=== PATIENT | female | born 1990 | race Caucasian/White ===

== ENCOUNTER → 2018-01-22 14:01 | Outpatient (CLI) | payer BC, SELFPAY ==
--- NOTE | 2018-01-22 14:10 | US_ITS ---
US transvaginal HISTORY: ITS.REASON: PELVIC PAIN ORDERING PHYSICIAN: Barbara Tejeda PATIENT AGE: 27 years Comparison: None FINDINGS: UTERUS: The uterus measures 7 x 3.5 x 4.8 cm. Combined endometrial thickness is 1 cm . No uterine mass. There is a nabothian cyst present measuring 7 mm RIGHT OVARY: 3 x 2 x 1.8 cm. There are multiple small follicles. Blood flow is present the largest follicle is 8 mm LEFT OVARY: 2.8 x 2.5 x 2.6 cm containing a few follicles. Blood flow is present CUL-DE-SAC FLUID: Small amount fluid in the cul-de-sac OTHER FINDINGS: None IMPRESSION: 1. Endometrial thickness upper limits of normal 2. Small bilateral ovarian follicles with a small amount fluid in the cul-de-sac. No other significant anomalies evident
== END ==
PROVIDERS: Family Provider Family Medicine; PCP Family Medicine; Visit Provider Nurse Practitioner Family
DX: R10.2 Pelvic and perineal pain (principal)
CPT/HCPCS: 76830

== ENCOUNTER → 2018-06-13 14:01 | Outpatient (CLI) | payer BC, SELFPAY ==
[2018-06-13 16:40] LABS: HCG,Quantitative 9484 mIU/mL
== END ==
PROVIDERS: Visit Provider Nurse Practitioner Obstetrics & Gynecology
DX: Z32.00 Encounter for pregnancy test, result unknown (principal)
CPT/HCPCS: 36415; 84702

== ENCOUNTER → 2018-07-09 14:15 | Outpatient (CLI) | payer BC, SELFPAY ==
--- NOTE | 2018-07-09 14:17 | US_ITS ---
US OB transvaginal HISTORY: ITS.REASON: US OB Dates ORDERING PHYSICIAN: Pito Bernstein MD PATIENT AGE: 27 years COMPARISON: None FINDINGS: An intrauterine gestational sac is present with a pole with a crown-rump length of 2.38cm correlating to gestational age of 9w1d. heart tones are present with an FHR of 167 bpm's. Yolk sac is noted. The amnion and chorion have not yet fused. Adnexa: 1 cm left corpus luteum cyst. IMPRESSION: Live intrauterine gestation at 9 weeks 1 days as described above. Estimated due date by Ultrasound is 02/10/2019
[2018-07-09 15:37] LABS: Basophils % 0.4 % (0.1-2.0); Eosinophils # 0.1 K/mm3 (0.0-0.4); Eosinophils % 0.6 % (0.1-12.0); Hematocrit 42.2 % (37.0-47.0); Hemoglobin 13.9 g/dL (12.2-16.2); Lymphocytes # 2.3 K/mm3 (0.7-4.5); Lymphocytes % 25.5 % (10-50); Mean Corpuscular Hemoglobin 28.8 pg (27.0-31.2); Mean Corpuscular Volume 87.2 fl (81-99); Monocytes # 0.3 K/mm3 (0.1-1.0); Monocytes % 3.6 % (1.7-9.3); Neutrophils # 6.3 K/mm3 (1.8-7.8); Platelet Count 249 K/mm3 (142-424); Red Blood Count 4.84 M/mm3 (4.20-5.40); Red Cell Distribution Width 13.6 % (11.5-17.5)
[2018-07-11 07:20] LABS: HIV Screen 4th Generation wRfx Non Reactive (Non Reactive)
[2018-07-11 09:42] LABS: Hepatitis B Surface Antigen Negative (Negative); Hepatitis C Antibody <0.1 s/co ratio (0.0-0.9); Rubella Antibodies, IgG 4.07 index (Immune >0.99)
[2018-07-12 06:54] LABS: Rapid Plasma Reagin Ab Titer Non Reactive (NonRea<1:1)
== END ==
PROVIDERS: PCP Family Medicine; Visit Provider Nurse Practitioner Obstetrics & Gynecology
DX: O26.841 Uterine size-date discrepancy, first trimester (principal)
CPT/HCPCS: 36415; 76817; 85025; 86592; 86703; 86762; 86850; 87340; 87380; G0432

== ENCOUNTER → 2018-07-09 15:10 | Outpatient (CLI) | payer BC, SELFPAY | PROVIDERS: Visit Provider Nurse Practitioner Obstetrics & Gynecology | DX: O26.841 Uterine size-date discrepancy, first trimester (principal) | CPT/HCPCS: 36415; 85025; 86592; 86703; 86762; 86850; 87340; 87380; G0432 ==

== ENCOUNTER → 2018-08-22 09:24 | Outpatient (CLI) | payer BC, SELFPAY ==
[2018-08-25 01:08] LABS: AFP Value 42.2 ng/mL (.); DIA MoM 1.26 (.); DSR (Second Trimester) 1 IN 7141 (.); Gest. Age on Collection Date 15.4 WEEKS (.); Maternal Age At EDD 30.5 yr (.); OSBR Risk 1 IN 3920 (.); Results Report (.); hCG MoM 0.48 (.); hCG Value 23883 mIU/mL (.); uE3 Value 0.54 ng/mL (.)
[2018-08-25 19:01] LABS: Gestat. Age Based On EDD (.)
== END ==
PROVIDERS: Visit Provider Nurse Practitioner Obstetrics & Gynecology
DX: Z3A.15 15 weeks gestation of pregnancy (principal)
CPT/HCPCS: 36415; 82106

== ENCOUNTER → 2018-09-30 14:00 | Outpatient (CLI) | payer BC, SELFPAY ==
--- NOTE | 2018-09-30 14:03 | US_ITS ---
US OB /maternal detail: INDICATION: ITS.REASON: US OB Complete ORDERING PHYSICIAN: Pito Bernstein MD PATIENT AGE: 28 years TECHNIQUE: ultrasound transabdominal scanning. COMPARISON: No previous relevant studies. FINDINGS: Single viable intrauterine gestation. Ceph position. Placenta: Post placenta grade 1. There is average amount fluid. The cervix appears satisfactory. Closed and measuring 3 cm in length. Complete survey performed and was unremarkable on the submitted images as in PACS. No discrete anomalies identified on survey imaging by technologist. Active fetus. Three-vessel cord with satisfactory umbilical cord insertion. 4- chamber heart noted. Survey of brain & ventricles unremarkable. Face and neck survey unremarkable. Diaphragm and chest views unremarkable. Abdomen: Both kidneys noted and unremarkable. Stomach noted and satisfactory. Spine: Survey of the spine satisfactory with no anomalies identified nor imaged. Both arms and legs noted. Amniotic Fluid: Adequate. Maternal adnexa: No significant findings. Measurements: Average ultrasound age 20w6d. Gestational Age 21w0d. Estimated due date by ultrasound age 0702/11/2019. Estimated weight 378 grams. BPD = 20w6d OFD = 22w0d HC = 20w6d AC = 21w2d FL = 20w3d Growth Percentile= 34% Heart Rate = 134 Cerebellum = 22w1d Humerus = 21w1d HC/AC is 1.14 (1.06-1.25). CI is 73% (70-86%). FL/BPD is 68%. FL/AC is 20% (20-24%). IMPRESSION: There is a single live fetus which is in cephalic presentation with an average ultrasound age of 20 weeks and 6 days. The fetus is active with no obvious anatomic abnormalities. Please see above for details
== END ==
PROVIDERS: PCP Family Medicine; Visit Provider Nurse Practitioner Obstetrics & Gynecology
DX: Z36.0 Encounter for antenatal screening for chromosomal anomalies (principal)
CPT/HCPCS: 76811

== ENCOUNTER → 2018-11-13 07:21 | Outpatient (CLI) | payer BC, SELFPAY ==
[2018-11-13 09:58] LABS: Glucose,Fasting 79 mg/dL (60-105)
[2018-11-13 11:22] LABS: Glucose 1 Hour 88 mg/dL (74-106)
== END ==
PROVIDERS: Visit Provider Nurse Practitioner Obstetrics & Gynecology
DX: Z34.90 Encounter for supervision of normal pregnancy, unspecified, unspecified trimester (principal)
CPT/HCPCS: 36415; 82951

== ENCOUNTER → 2019-01-09 16:42 | Outpatient (CLI) | payer BC, SELFPAY | PROVIDERS: Visit Provider Nurse Practitioner Obstetrics & Gynecology | DX: Z34.90 Encounter for supervision of normal pregnancy, unspecified, unspecified trimester (principal) | CPT/HCPCS: 86403 ==

== ENCOUNTER → 2019-01-17 10:31 | Outpatient (CLI) | payer BC, SELFPAY ==
--- NOTE | 2019-01-17 10:44 | US_ITS ---
US OB BPP w/Fet-Mat S/D: Indication: ITS.REASON: US OB BPP Growth- SGA ORDERING PHYSICIAN: Pito Bernstein MD PATIENT AGE: 28 years FINDINGS: The following parameters are obtained: Average ultrasound age is 35w6d. Estimated due date by ultrasound is 02/15/2019. Estimated weight is 2734 grams which is 30th percentile BPD: 36w3d OFD: 36w0d HC: 35w5d AC: 35w5d FL: 35w3d heart rate: 144 bpm. HC/AC: 1.00 (0.93-1.11) Cephalic index: 81% (70-86%) FL/BPD: 77% (71-87%) FL/AC: 22% (20-24%) Amniotic fluid index: 12 cm Qualitative AFV: 2 breathing movements: 2 Gross body movements: 2 Tone: 2 Biophysical profile score: 8/8 Doppler evaluation of the umbilical artery: SD ratio: 3.6 Resistive index: 0.72 No obvious anomalies evident. Placenta: Posterior High, Grade 2 Cervix: Appears closed and measures 3 cm IMPRESSION: There is a single live fetus present which is in cephalic presentation. Average ultrasound age 35 weeks and 6 days. All parameters correlate. Estimated weight is 2734 g which is 30th percentile. Biophysical profile dated 8 with an amniotic fluid index of 12 cm Umbilical artery evaluation shows SD ratio and resistive index at upper limits of normal near the 95th percentile
== END ==
PROVIDERS: PCP Family Medicine; Visit Provider Nurse Practitioner Obstetrics & Gynecology
DX: O36.5990 Maternal care for other known or suspected poor fetal growth, unspecified trimester, not applicable or unspecified (principal)
CPT/HCPCS: 76811; 76819; 76820

== ENCOUNTER 2019-02-04 01:15 | Inpatient (IN) ==
[2019-02-04 05:47] LABS: Basophils % 0.3 % (0.1-2.0); Eosinophils # 0.1 K/mm3 (0.0-0.4); Eosinophils % 0.5 % (0.1-12.0); Hematocrit 36.2 % (37.0-47.0); Hemoglobin 11.7 g/dL (12.2-16.2); Lymphocytes # 2.7 K/mm3 (0.7-4.5); Lymphocytes % 22.7 % (10-50); Mean Corpuscular HGB Conc 32.4 g/dL (31.8-35.4); Mean Corpuscular Volume 88.3 fl (81-99); Mean Platelet Volume 8.5 fl (7.4-10.4); Monocytes # 0.4 K/mm3 (0.1-1.0); Monocytes % 3.2 % (1.7-9.3); Neutrophils # 8.7 K/mm3 (1.8-7.8); Neutrophils % 73.3 % (37.0-80.0); Platelet Count 264 K/mm3 (142-424); Red Cell Distribution Width 13.8 % (11.5-17.5); White Blood Count 11.8 K/mm3 (4.8-10.8)
[2019-02-04 05:48] LABS: Microscopic, Urine URINE MICROSCOPIC (MICROSCOPIC)
[2019-02-04 05:50] LABS: Appearance,Urine CLEAR (Clear); Bilirubin,Urine Negative (Negative); Blood, Urine Negative (Negative); Color,Urine YELLOW (Yellow); Glucose,Urine (UA) Negative (Negative); Ketones,Urine Negative (Negative); Leukocyte Esterase,Urine Negative (Negative); PH,Urine 6.5 (5.0-8.5); Protein,Urine Negative (Negative); Specific Gravity, Urine <= 1.005 (1.005-1.030); Urobilinogen,Urine 0.2 EU/dl (0.2)
[2019-02-04 05:54] LABS: Renal Epithelial Cells,Urine Occasional #/lpf (0); WBC,Urine Occasional #/hpf (0-3)
[2019-02-04 05:56] LABS: Amphetamine/Metha Screen,Urine Negative ng/mL (<1000); Barbiturates Screen,Urine Negative ng/mL (<200); Benzodiazepines Screen,Urine Negative ng/mL (<200); Cannabinoid Screen,Urine Negative ng/mL (<50); Cocaine Screen,Urine Negative ng/mL (<300); Methadone Screen,Urine Negative ng/mL (<300); Opiate Screen,Urine Negative ng/mL (<300); Phencyclidine Screen,Urine Negative ng/mL (<25)
--- NOTE | 2019-02-04 09:13 | Progress Note ---
Labor Note - Subjective: Date: 02/04/19 Time: 07:45 regular contraction - Objective: NST:: Reactive Contractions:: every 2-3 minutes Cervical Dilation:: 4 Effacement:: 90% Station: -1 Membranes: artificially ruptured Comment:: I ruptured her membranes and there was clear fluid. - Fetus: Monitoring?: Yes monitoring type:: External - Assessment: Labor progressing?: Yes Cephalopelvic disproportion?: No Patient Problems: All Active Problems (Updated 01/30/19 @ 09:14 by Ashanti Ponce, [facility]) Strep throat (Acute) Brkxp-gyw-adrvc fetus (Acute) (Acute) Annual physical exam (Acute) - Plan: Anesthesia for epidural?: No Continue to labor down?: Yes Plan for ?: No Continue to monitor?: Yes Start pushing?: No
--- NOTE | 2019-02-04 09:14 | History & Physical Report ---
OB - H&P: HPI Antepartum - History of Present Illness Chief complaint: She has pressure and irregular contractions History of present illness: She is a 28-year-old 3 para 1 aborta 1 at 39 and 1 weeks gestational age. She was found to be 4+ centimeters in my office. She was having irregular contractions. As result of that we elected to augment her labor. - History of Present Criteria for establishing EDC:: LMP confirmed by 1st trimester US care: good care Ultrasounds: normal 1st trimester US, normal mid trimester US Obstetrical complications: none Medical complications: none - Labs Blood type: B (+) positive Rubella: immune RPR/VDRL: nonreactive GBS status: negative [facility] History I have reviewed the patient's past medical history: Yes Medical History: Denies:: Anxiety, Depression, Diabetes Mellitus Type 2, Migraine, MRSA *Have you ever received a pneumonia vaccine?: No *Have you received a flu vaccine this season?: Yes Other Surgeries: Yes: No Previous Surgery. No: Amputation: No Fractures: No - *Social History Smoking Status: Former smoker Tobacco Type: cigarettes Alcohol Intake: never Substance Use Type: denies use *Occupational Status:: unemployed *Travel in the last 8 weeks: None - Psychiatric History Pschychiatric History:: Denies:: Anxiety, Depression Family Hx:: No significant family history Para: 1 Review of Systems - Review of Systems Review of systems:: pertinent systems reviewed and negative unless documented below Meds Home Medications Medication Instructions Recorded Confirmed Type 1 tab PO DAILY 07/01/18 02/04/19 History vitamin,calcium,bgoejcjw-twhv-gexnv acid tablet ranitidine 150 mg tablet 150 mg PO DAILY 01/15/19 02/04/19 History ferrous sulfate 325 mg (65 mg 325 mg PO DAILY 02/04/19 02/04/19 History iron) tablet,delayed release Allergies Allergy/AdvReac Type Severity Reaction Status Date / Time No Known Allergies Allergy Verified 01/30/19 09:10 OB - H&P: Exam - Physical Exam Vital signs: Temp Pulse Resp BP Pulse Ox 97.9 F 88 12 116/70 98 02/04/19 05:34 02/04/19 05:34 02/04/19 05:34 02/04/19 05:34 02/04/19 05:34 - Constitutional no acute distress - Routine HEENT Exam Head: Present: normocephalic Eye: Present: EOMI, PERRL ENT: Present: mucous membranes moist - Routine Neck Exam Present: supple, full ROM - Routine Respiratory Exam Absent: accessory muscle use (good air entry bilaterally), respiratory distress, wheezes, crackles - Routine Cardiovascular Exam Present: RRR. Absent: murmur - Routine Abdominal Exam Present: soft, normoactive bowel sounds. Absent: tenderness, distended, guarding - Routine Rectal Exam Patient deferred: visual exam, digital exam - Routine Exam Patient deferred: external exam, groin exam, perineal exam - Routine Extremities Exam Present: full ROM. Absent: cyanosis, edema - Routine Skin Exam Present: intact. Absent: cyanosis - Routine Neurological Exam Present: alert, oriented X3 - Routine Psychiatric Exam Present: normal affect OB - Results - Labs Labs: Short CBC 02/04/19 Range/Units 05:40 WBC 11.8 H (4.8-10.8) K/mm3 Hgb 11.7 L (12.2-16.2) g/dL Hct 36.2 L (37.0-47.0) % Plt Count 264 (142-424) K/mm3 Urine 02/04/19 Range/Units 05:10 Urine Color Yellow (Yellow) Urine Appearance Clear (Clear) Urine pH 6.5 (5.0-8.5) Ur Specific [place] <= 1.005 (1.005-1.030) Urine Protein Negative (Negative) Urine Glucose (UA) Negative (Negative) OB - A/P Antepartum (1) Normal delivery Current visit: Yes Status: Acute - Additional Plan Planning to breastfeed?: Yes Plan: expectant management Additional Information:: She is having irregular contractions prior to admission and was found to be 4 cm dilated. She has been admitted for augmentation of labor at term.
--- NOTE | 2019-02-04 10:05 | Progress Note ---
Labor Note - Subjective: Date: 02/04/19 Time: 10:04 regular contraction - Objective: NST:: Reactive Contractions:: every 2-3 minutes Cervical Dilation:: 7-8 Effacement:: 100% Station: 0 Membranes: artificially ruptured - Fetus: Monitoring?: Yes monitoring type:: External - Assessment: Labor progressing?: Yes Cephalopelvic disproportion?: No Patient Problems: All Active Problems (Updated 02/04/19 @ 09:14 by Pito Bernstein MD) Strep throat (Acute) Normal delivery (Acute) Ydnjg-hmo-sdifd fetus (Acute) (Acute) Annual physical exam (Acute) - Plan: Anesthesia for epidural?: Yes Continue to labor down?: Yes Plan for ?: No Continue to monitor?: Yes Start pushing?: No
--- NOTE | 2019-02-04 10:51 | Procedure Note ---
- Delivery Note Delivery Date:: 02/04/19 Delivery Time:: 10:32 Anesthesia Type: Epidural Was labor medically induced?: No Gestational age (weeks): 39 delivered prior to 39 weeks?: No Justification for early elective delivery:: Active Labor Gender: Male at 1 minute: 9 at 5 minutes: 9 LAC or MLE?: LAC Delivery Procedure:: She is a 28-year-old 3 para 1 aborta 1 who was 39+ weeks gestational age. She was having irregular contractions and was found to be 4 cm dilated in my office. As result of that she was offered augmentation. She was started on IV oxytocin and had her membranes ruptured. She progressed under labor epidural to full dilation. She delivered spontaneously a liveborn male child at 10:32 AM on the morning of February 04, 2019. On deliver the head the anterior shoulders then delivered followed by the rest the infant's body atraumatically. The oropharynx and nasopharynx were bulb suction. The baby cried spontaneously. We allowed the cord to continue to pulsate for proximally 1 minute. The cord was then doubly clamped and cut. The baby was then placed on the mother's abdomen for further care. The nurses assigned Apgars of 9 at 1 minute and 9 at 5 minutes. We then obtained cord blood as well as cord pH. Using gentle traction on the cord and countertraction the fundus I was able to easily deliver the placenta intact. He had a normal three-vessel cord. She had a second-degree perineal laceration that was repaired in the usual fashion with 3-0 Vicryl Rapide suture to the superficial tissues and 2-0 Vicryl suture to the deep tissues. The sphincter and anus were intact. She has B+ blood, she is rubella immune and was group A streptococcus negative. She plans to breast-feed. Her business info consultant is Dr. Yancey. Estimated blood loss was approximately 400 cc. Laceration:: vaginal Placental Delivery Description: Spontaneous
--- NOTE | 2019-02-04 12:15 | Progress Note ---
[facility] Anesthesia Checklist - Structural Data Admitted From: Inpatient Planned Operative Procedure/s: labor epidural Consent for Planned Operative Procedure(s) Verified: Yes - Airway Assessment C-Spine Mobility Assessed: Yes TMJ Mobility Assessed: Yes Dentition: Good Dentition - Neurological Assessment Level of Consciousness: Awake, Alert, Appropriate - Anesthesia Plan Anesthesia Risk discussed: Yes Anesthesia Plan: Verified ASA Class: II Anesthesia Type: Epidural [facility] History I have reviewed the patient's past medical history: Yes Medical History: Denies:: Anxiety, Depression, Diabetes Mellitus Type 2, Migraine, MRSA *Have you ever received a pneumonia vaccine?: No *Have you received a flu vaccine this season?: Yes Other Surgeries: Yes: No Previous Surgery. No: Amputation: No Fractures: No - *Social History Smoking Status: Former smoker Tobacco Type: cigarettes Alcohol Intake: never Substance Use Type: denies use *Occupational Status:: unemployed *Travel in the last 8 weeks: None - Psychiatric History Pschychiatric History:: Denies:: Anxiety, Depression Family Hx:: No significant family history Para: 1
[2019-02-05 08:19] LABS: Hemoglobin 10.4 g/dL (12.2-16.2)
--- NOTE | 2019-02-05 17:56 | Discharge Summary ---
General - General Admission date:: 02/04/19 Discharge date: 02/06/19 HPI HPI: She is a 28-year-old 3 now para 2 aborta 1 who was 39 and 1 weeks gestational age. She she was feeling pressure and having irregular contractions and since she was term we elected to augment her labor. Hospital Course Hospital Course: She was started on IV oxytocin had her membranes ruptured. Under labor epidural she progressed to full dilation and delivered spontaneously a liveborn male child at 10:32 AM on the morning of February 04, 2019. The baby weighed 6 pounds 4 ounces and was 18 and three-quarter inches long. He had Apgars of 9 at 1 minute and 9 at 5 minutes. She is breast-feeding. She has B+ blood, she is rubella immune and was group B streptococcus negative. She is breast-feeding. Her lacing operator is Dr. Yancey. She is discharged home to follow-up with me in approximately 2 weeks time. Rhogam Administration: Not Indicated Objective Vital signs: Temp Pulse Resp BP Pulse Ox 97.9 F 88 12 116/70 98 02/04/19 05:34 02/04/19 05:34 02/04/19 05:34 02/04/19 05:34 02/04/19 05:34 no acute distress Results Labs on day of discharge: Labs from last 24 hours 02/05/19 07:12 Hgb 10.4 L Hct 32.0 L DS: Diagnosis - Discharge Diagnosis (1) Normal delivery Status: Acute Discharge Plan - Patient Discharge Instructions ACTIVITY: Ambulate as tolerated DIET: continue same diet - Follow up Plan Disposition: Home, Self-Retirement Medications: Home Medications Medication Instructions Recorded Confirmed Type 1 tab PO DAILY 07/01/18 02/04/19 History vitamin,calcium,cqlnoxpr-liny-fxord acid tablet ranitidine 150 mg tablet 150 mg PO DAILY 01/15/19 02/04/19 History ferrous sulfate 325 mg (65 mg 325 mg PO DAILY 02/04/19 02/04/19 History iron) tablet,delayed release Prescriptions/Medication Reconciliation: Continued vitamin,calcium,djbobrqx-crrj-fnibq acid tablet 1 tab PO DAILY ranitidine 150 mg tablet 150 mg PO DAILY No Action ferrous sulfate 325 mg (65 mg iron) tablet,delayed release 325 mg PO DAILY
--- NOTE | 2019-02-06 08:56 | Progress Note ---
Internal Medicine - PN: Subj *Date: 02/06/19 *Time: 08:55 (This is day #2. The patient is afebrile. Vital signs stable. Abdomen soft. Lochia normal. Uterine fundus involuting well. Hemoglobin 10.7 g, but clinically stable. She is eating and ambulating and has had a bowel movement. Breast-feeding. She will be discharged today.) Exam Vital signs and Labs for Last 24 Hours: Temp Pulse Resp BP Pulse Ox 97.9 F 88 12 116/70 98 02/04/19 05:34 02/04/19 05:34 02/04/19 05:34 02/04/19 05:34 02/04/19 05:34 I & O for Last 24 hours: Intake & Output 02/03/19 02/04/19 02/05/19 02/06/19 11:59 11:59 11:59 11:59 Weight 158 lb Assessment and Plan (1) Normal delivery Current visit: Yes Status: Acute Category: Medical Code(s): O80 - Encounter for full-term uncomplicated delivery
[2019-02-06 10:21] VITALS: BP 115/72
== END 2019-02-06 10:00 | disposition home or self-care (01) | DRG 807 ==
LOC: OB 05:09
PROVIDERS: ADMIT Nurse Practitioner Obstetrics & Gynecology; ATTEND Nurse Practitioner Obstetrics & Gynecology

== ENCOUNTER 2019-12-18 19:31 | Emergency (ER) | payer BC, SELFPAY ==
[2019-12-18 19:48] VITALS: BP 123/76; PULSE 100; RESP 20; TEMP 36.8; O2SAT 99; BMI 24.0
[2019-12-18 19:49] LABS: Apearance,Urine Cloudy (Clear); Color,Urine Dark Yellow (Yellow); Glucose,Urine (UA) Negative (Negative); Ketones,Urine Negative (Negative); PH,Urine 6.5 (5.0-8.5); Protein,Urine 1+ (Negative)
[2019-12-18 19:50] LABS: Bilirubin,Urine Negative (Negative); Blood, Urine Trace (Negative); UTC Leukocyte Esterase,Urine 1+ (Negative); UTC Nitrate,Urine Negative (Negative); Urobilinogen,Urine 0.2 EU/dl (0.2)
--- NOTE | 2019-12-18 19:50 | HMH.EDUTC ---
[facility] [place] Clinical Impression: UTI (urinary tract infection) Qualifiers: Urinary tract infection type: site unspecified Hematuria presence: with hematuria Qualified Code(s): N39.0 - Urinary tract infection, site not specified Disposition: Home, Self-Care Condition on Discharge: Good Instructions: Urinary Tract Infection Additional Instructions: Drink plenty of fluids. Take tylenol or ibuprofen for pain or fever. Take the medications as directed. Follow up with your regular doctor. GO TO THE ER FOR ANY WORSENING SYMPTOMS The pyridium will make your urine turn orange, this is an expected side effect. It will stain your clothes if it comes into contact with them. Prescriptions: Fluconazole [Diflucan 150mg tab] 150 mg PO ONCE #1 tab Transmission Status: Pending to [facility] # Cefdinir [Omnicef 300mg Capsule] 300 mg PO BID #20 cap Transmission Status: Pending to [facility] # Phenazopyridine HCl [Pyridium 200mg Tablet] 200 pow PO TID #6 tab Transmission Status: Pending to [facility] # Referrals: Donnie Yancey MD [Primary Care Provider] - Time of Disposition: 19:57 Medical Decision Making - Medical Records Medical records reviewed: No: I reviewed the patient's medical records. - Ibrahima Inquiry Pt receiving controlled substance: No Vital Signs: 12/18/19 19:48 Temperature 98.2 F Temperature Source Oral Pulse Rate [Right Radial] 100 H Respiratory Rate 20 Blood Pressure [Right Arm] 123/76 Blood Pressure Mean [Right Arm] 91 Blood Pressure Source [Right Arm] Automatic Cuff Blood Pressure Position [Right Arm] Sitting 02 Sat by Pulse Oximetry 99 Oxygen Delivery Method Room Air - Lab Data Lab results reviewed: Yes: I reviewed the patient's lab results. Lab Results 12/18/19 19:46: Urine Color Dark yellow, Urine Appearance Cloudy, Urine pH 6.5, Ur Specific [place] 1.030, Urine Protein 1+, Urine Glucose (UA) Negative, Urine Ketones Negative, Urine Blood Trace, Urine Nitrate Negative, Urine Bilirubin Negative, Urine Urobilinogen 0.2, Ur Leukocyte Esterase 1+ A Orders (Tests/Meds): ORDERS Category Date Time Status Urine Culture Stat Micro 12/18/19 19:46 [place] [facility] [place] - General Stated complaint: Possible UTI Time Seen by Provider: 12/18/19 19:51 - History of Present Illness Provider Complaint: She c/o low back pain and burning while urinating. Her symptoms began yesterday. - Related Data Previous Rx's Medication Instructions Recorded Cefdinir [Omnicef 300mg Capsule] 300 mg PO BID #20 cap 12/18/19 Fluconazole [Diflucan 150mg tab] 150 mg PO ONCE #1 tab 12/18/19 Phenazopyridine HCl [Pyridium 200 pow PO TID #6 tab 12/18/19 200mg Tablet] Allergies Allergy/AdvReac Type Severity Reaction Status Date / Time No Known Allergies Allergy Verified 10/09/19 10:14 [facility] History - Hepatitis A Screen Attestation statement:: This patient has been screened for Hepatitis A risk factors. I have reviewed the patient's past medical history: Yes Medical History: Denies:: Anxiety, Depression, Diabetes Mellitus Type 2, Migraine, MRSA Laterality Cases: Left: ACL Repair Other Surgeries: Yes: No Previous Surgery. No: Amputation: No Fractures: Yes (COLLARBONE) Comment: left knee, X 2 - Social History Smoking Status: Current every day smoker Tobacco Type: cigarettes # Packs/Day (cigarettes): 1 Alcohol Intake: current Alcohol Intake Frequency:: holidays/special occasions only Substance Use Type: denies use Occupational Status: other Housing: house Household Members: family - Psychiatric History Pschychiatric History:: Denies:: Anxiety, Depression Family Hx:: Cancer, Diabetes ROS Obtained: Yes All systems reviewed & no additional complaints - Constitutional Constitutional: Denies chills, Denies fever(s), Reports poor appetite, Reports malaise - Eyes Eyes: Denies eye dischar
[2019-12-18 20:12] VITALS: BP 123/76; PULSE 100; RESP 20; TEMP 36.8; O2SAT 99
== END 2019-12-18 20:13 | disposition home or self-care (01) ==
PROVIDERS: Emergency Provider Nurse Practitioner Family; PCP Family Medicine
DX: N30.00 Acute cystitis without hematuria (principal); F17.210 Nicotine dependence, cigarettes, uncomplicated
CPT/HCPCS: 81003; 87086; 87088; 87186; 99201

== ENCOUNTER 2020-10-16 09:04 | Emergency (ER) | payer BC, SELFPAY ==
[2020-10-16 09:28] LABS: Apearance,Urine Clear (Clear); Color,Urine Red (Yellow); Glucose,Urine (UA) Negative (Negative); Ketones,Urine Negative (Negative); Protein,Urine 3+ (Negative)
[2020-10-16 09:29] LABS: Bilirubin,Urine Negative (Negative); Blood, Urine 4+ (Negative); UTC Leukocyte Esterase,Urine 1+ (Negative); UTC Nitrate,Urine Negative (Negative); Urobilinogen,Urine 0.2 EU/dl (0.2)
[2020-10-16 09:36] VITALS: BP 145/88; PULSE 69; RESP 16; TEMP 36.4; O2SAT 100; BMI 24.0
--- NOTE | 2020-10-16 09:48 | HMH.EDUTC ---
[facility] [place] Clinical Impression: UTI (urinary tract infection) Qualifiers: Urinary tract infection type: acute cystitis Hematuria presence: with hematuria Qualified Code(s): N30.01 - Acute cystitis with hematuria Disposition: Home, Self-Care Condition on Discharge: Good Instructions: Urinary Tract Infection Additional Instructions: Increase fluids, water and not soda or tea. Can drink cranberry juice or cranberry extract. White front to back Wear cotton underwear Empty bladder after intercourse Start antibiotics immediately and make sure you take the full course although you may start to see improvement over the next 48 hours. You can eat yogurt or take probiotics to decrease diarrhea or yeast infection caused by the antibiotic Be sure to follow-up anytime for new or worsening symptoms in 48 hours for wound urine culture results be sure to let you PCP no recent urine for culture so they can request records and ensure that you have appropriate antibiotic if you are not getting better or getting worse. If symptoms worsen or do not improve return or be seen in the ER. Follow-up with primary care this week. Prescriptions: cephALEXin [Cephalexin 500mg Tab] 500 mg PO BID 7 Days #14 tab Transmission Status: Pending to [facility] #[id number] Referrals: Donnie Yancey MD [Primary Care Provider] - Time of Disposition: 09:57 Medical Decision Making - Ibrahima Inquiry Pt receiving controlled substance: No Vital Signs: 10/16/20 09:36 Temperature 97.6 F Temperature Source Tympanic Pulse Rate [Right] 69 Respiratory Rate 16 Blood Pressure [Right Arm] 145/88 H Blood Pressure Mean [Right Arm] 107 Blood Pressure Source [Right Arm] Automatic Cuff Blood Pressure Position [Right Arm] Sitting 02 Sat by Pulse Oximetry 100 Oxygen Delivery Method Room Air - Lab Data Lab Results 10/16/20 09:20: Urine Color Red, Urine Appearance Clear, Urine pH 7.0, Ur Specific [place] 1.010, Urine Protein 3+, Urine Glucose (UA) Negative, Urine Ketones Negative, Urine Blood 4+, Urine Nitrate Negative, Urine Bilirubin Negative, Urine Urobilinogen 0.2, Ur Leukocyte Esterase 1+ A [facility] [place] HPI - General Chief complaint: Urgent Treatment Center Stated complaint: UTI Time Seen by Provider: 10/16/20 09:48 Mode of Arrival: Ambulatory Source of Information: Patient Limitations: No Limitations Description of Symptoms (Recalled from Triage Doc. by RN): pt is having burning with urination. she thinks she has a uti. (pt is on her period...visible blood in urine.) HEENT Symptoms (Recalled from RN notes): No Resp Symptoms (Recalled from RN notes): No Skin Symptoms (Recalled from RN notes): No MS Symptoms (Recalled from RN notes): No Functional Status (Recalled from RN notes): na - History of Present Illness Provider Complaint: 30 yr old female presents for burning,freq,urgency with voiding that started last night. - Related Data Previous Rx's Medication Instructions Recorded Cefdinir [Omnicef 300mg Capsule] 300 mg PO BID #20 cap 12/18/19 Fluconazole [Diflucan 150mg tab] 150 mg PO ONCE #1 tab 12/18/19 Phenazopyridine HCl [Pyridium 200 pow PO TID #6 tab 12/18/19 200mg Tablet] cephALEXin [Cephalexin 500mg Tab] 500 mg PO BID 7 Days #14 tab 10/16/20 Allergies Allergy/AdvReac Type Severity Reaction Status Date / Time No Known Allergies Allergy Verified 10/16/20 09:42 - Worker's Comp Is this a Worker's Comp case?: No [facility] History - Hepatitis A Screen Drug use history?: No High risk sexual behaviors?: No History of sexually transmitted infection?: No Currently employed?: No Childcare worker?: No Do you have indoor plumbing?: Yes Do you have electricity?: Yes Attestation statement:: This patient has been screened for Hepatitis A risk factors. I have reviewed the patient's past medical history: Yes Medical History: Denies:: Anxiety, Depression, Diabetes Mellitus Type 1, Diabetes Mellitus Type 2, Migraine, MR
[2020-10-16 09:51] VITALS: BP 141/88; PULSE 63; RESP 15; TEMP 36.1
== END 2020-10-16 10:08 | disposition home or self-care (01) ==
PROVIDERS: Emergency Provider Nurse Practitioner Family; PCP Family Medicine
DX: N30.01 Acute cystitis with hematuria (principal); F17.210 Nicotine dependence, cigarettes, uncomplicated
CPT/HCPCS: 81003; 87086; 87088; 87186; 99202; G0463

== ENCOUNTER 2021-08-02 20:20 | Emergency (ER) | payer BC, SELFPAY ==
[2021-08-02 21:13] VITALS: BP 144/89; PULSE 78; RESP 16; TEMP 36.5; O2SAT 100; BMI 23.6
[2021-08-02 21:22] LABS: Apearance,Urine Clear (Clear); Bilirubin,Urine Negative (Negative); Blood, Urine Negative (Negative); Color,Urine Yellow (Yellow); Glucose,Urine (UA) Negative (Negative); Ketones,Urine Negative (Negative); Protein,Urine Negative (Negative); Urobilinogen,Urine 0.2 EU/dl (0.2)
[2021-08-02 21:23] LABS: UTC Leukocyte Esterase,Urine 1+ (Negative); UTC Nitrate,Urine Negative (Negative)
--- NOTE | 2021-08-02 21:45 | HMH.EDUTC ---
[facility] [place] Clinical Impression: UTI (urinary tract infection) Qualifiers: Urinary tract infection type: site unspecified Hematuria presence: with hematuria Qualified Code(s): N39.0 - Urinary tract infection, site not specified Disposition: Home, Self-Care Condition on Discharge: Good Instructions: Urine Culture, DI for Urinary Tract Infection (UTI) Additional Instructions: Drink plenty of fluids. Take tylenol or ibuprofen for pain or fever. Take the medications as directed. Follow up with your regular doctor. GO TO THE ER FOR ANY WORSENING SYMPTOMS I put a refill on the antibiotics. I think that pharmacies keep these on file for 6 months. So, if your symptoms get better but return on down the road you could get this and take it. But it is always best to have your urine tested before you start an antibiotic for a uti. Prescriptions: Ondansetron [Zofran 4mg ODT] 4 mg PO Q8HP PRN #20 tab PRN Reason: Nausea Transmission Status: Received by [facility] Fluconazole [Diflucan 150mg tab] 150 mg PO ONCE #1 tab Transmission Status: Received by [facility] Nitrofurantoin Monohyd/M-Cryst [Macrobid 100 mg Capsule] 100 mg PO BID 5 Days #10 cap Transmission Status: Received by [facility] Referrals: Donnie Yancey MD [Primary Care Provider] - Forms: Work/School Release Time of Disposition: 22:29 Medical Decision Making - Medical Records Medical records reviewed: No: I reviewed the patient's medical records. - Ibrahima Inquiry Pt receiving controlled substance: No Vital Signs: 08/02/21 21:13 08/02/21 21:47 Temperature 97.7 F 97.7 F Temperature Source Temporal Artery Scan Pulse Rate 78 Pulse Rate [Left] 78 Respiratory Rate 16 16 Blood Pressure 144/89 H Blood Pressure [Right Arm] 144/89 H Blood Pressure Mean [Right Arm] 107 02 Sat by Pulse Oximetry 100 - Lab Data Lab results reviewed: Yes: I reviewed the patient's lab results. Lab Results 08/02/21 21:21: Urine Color Yellow, Urine Appearance Clear, Urine pH 7.0, Ur Specific [place] 1.020, Urine Protein Negative, Urine Glucose (UA) Negative, Urine Ketones Negative, Urine Blood Negative, Urine Nitrate Negative, Urine Bilirubin Negative, Urine Urobilinogen 0.2, Ur Leukocyte Esterase 1+ A Orders (Tests/Meds): ED MEDICATIONS Discontinued Medications Generic Name Dose Route Start Last Admin Trade Name Delma PRN Reason Stop Dose Admin Nitrofurantoin Macrocrystals 100 mg 08/02/21 22:30 08/02/21 22:35 Nitrofurantoin 100mg Capsule PO 08/02/21 22:31 100 mg ONCE ONE Administration ORDERS Category Date Time Status Urine Culture Stat Micro 08/02/21 21:13 Received [facility] [place] H[place] - General Stated complaint: possible uti Time Seen by Provider: 08/02/21 21:45 Mode of Arrival: Ambulatory Source of Information: Patient Limitations: No Limitations Description of Symptoms (Recalled from Triage Doc. by RN): pt c/o burning with urination x2days. HEENT Symptoms (Recalled from RN notes): No Resp Symptoms (Recalled from RN notes): No Skin Symptoms (Recalled from RN notes): No MS Symptoms (Recalled from RN notes): No Functional Status (Recalled from RN notes): wnl - History of Present Illness Provider Complaint: She c/o low back pain and burning with urination since yesterday. She gets uti's kind of frequently. - Related Data Previous Rx's Medication Instructions Recorded Fluconazole [Diflucan 150mg tab] 150 mg PO ONCE #1 tab 12/18/19 Phenazopyridine HCl [Pyridium 200 pow PO TID #6 tab 12/18/19 200mg Tablet] Fluconazole [Diflucan 150mg tab] 150 mg PO ONCE #1 tab 08/02/21 Nitrofurantoin Monohyd/M-Cryst 100 mg PO BID 5 Days #10 cap 08/02/21 [Macrobid 100 mg Capsule] Ondansetron [Zofran 4mg ODT] 4 mg PO Q8HP PRN #20 tab 08/02/21 Allergies Allergy/AdvReac Type Severity Reaction Status Date / Time No Known Allergies Allergy Verified 10/16/20 09:42 - W
[2021-08-02 21:47] VITALS: BP 144/89; PULSE 78; RESP 16; TEMP 36.5
== END 2021-08-02 22:38 | disposition home or self-care (01) ==
PROVIDERS: Emergency Provider Nurse Practitioner Family; PCP Family Medicine
DX: N30.00 Acute cystitis without hematuria (principal); F17.210 Nicotine dependence, cigarettes, uncomplicated
CPT/HCPCS: 81003; 87086; 99202; G0463

== ENCOUNTER 2022-09-08 18:32 | Emergency (ER) | payer BC, SELFPAY ==
[2022-09-08 19:05] VITALS: BP 131/73; PULSE 101; RESP 18; TEMP 36.8; O2SAT 98; BMI 24.0
[2022-09-08 19:33] VITALS: BP 131/73; PULSE 101; RESP 18; TEMP 36.8; O2SAT 98
--- NOTE | 2022-09-08 19:33 | EXP.UTC ---
Discharge Plan Disposition Patient Disposition: Home, Self-Care Condition: Good Prescriptions Prescriptions: New amoxicillin 875 mg tablet 875 mg PO Q12H Qty: 20 0RF methylprednisolone [Medrol (Nathen)] 4 mg tablets,dose pack See Rx Instructions .Route .COMPLEX 6 Days Qty: 21 0RF Rx Instructions: taper pack; No Action fluconazole 150 MG tablet 150 mg PO ONCE Qty: 1 2RF phenazopyridine 200 MG tablet 200 pow PO TID Qty: 6 0RF fluconazole 150 MG tablet 150 mg PO ONCE Qty: 1 2RF ondansetron 4 MG tablet,disintegrating 4 mg PO Q8HP PRN (Reason: Nausea) Qty: 20 0RF nitrofurantoin monohyd/m-cryst 100 MG capsule 100 mg PO BID 5 Days Qty: 10 1RF Referrals Follow up/Referrals: Priscila Vásquez MD [Primary Care Provider] - See instructions Activity Restrictions/Add. Instructions Additional Instructions/Restrictions: *Monitor Temp, Over the counter Motrin or Tylenol as directed/as needed Tylenol every 4 hours and Motrin every 6 hours (as long as your family doctor has told you that you can take it) for fever or pain. and straight to ER if unable to lower temp less than 101.0 after medication given *Warm salt water gargles may help to soothe the throat *Throat Lozenges? *Warm fluids like tea with honey may help to soothe the throat? *Sleep elevated *Humidifier/Vaporizer Your throat swab was sent for culture. Those results are typically sent to your primary care. Be sure to follow up in 2-3 days with your family doctor/primary care physician if no improvement so they can review those result and treat if necessary. If you don?t have a primary care doctor, I recommend you get one but in the mean time, you will have to return to a walk in clinic Follow up IMMEDIATELY for new or worsening symptoms or no Noticeable improvement over the next 48-72 hours. 911 for difficulty breathing or swallowing Clinical Impressions Clinical Impression: Strep throat Instructions Patient Instructions: DI for Strep Throat, Strep Throat Discharge ED Provider: Sofía Huddleston [facility] General Stated complaint: sinus pressure BOWER Mode of Arrival: Ambulatory Source of Information: Patient Limitations: No Limitations Time Seen by Provider: 09/08/22 19:33 Description of Symptoms (Recalled from Triage Doc. by RN): PATIENT C/O SINUS PRESSURE SINCE YESTERDAY HEENT Symptoms (Recalled from RN notes): Yes Resp Symptoms (Recalled from RN notes): No Skin Symptoms (Recalled from RN notes): No MS Symptoms (Recalled from RN notes): No Functional Status (Recalled from RN notes): WNL History of Present Illness Provider Complaint: Patient states that she started yesterday with sinus congestion and pressure along with sore scratchy throat and hurts when she swallows States that today she hasnt felt well and has taken several excedrin to help with the pain in her throat and headache States that this evening she was still not feeling well so she came in Related Data Previous Rx's Medication Instructions Recorded fluconazole 150 mg tablet 150 mg PO ONCE #1 tab 12/18/19 phenazopyridine 200 mg tablet 200 pow PO TID #6 tabs 12/18/19 fluconazole 150 mg tablet 150 mg PO ONCE #1 tab 08/02/21 nitrofurantoin 100 mg PO BID 5 days #10 caps 08/02/21 monohydrate/macrocrystals 100 mg capsule ondansetron 4 mg disintegrating 4 mg PO Q8HP PRN Nausea #20 tabs 08/02/21 tablet amoxicillin 875 mg tablet 875 mg PO Q12H #20 tabs 09/08/22 methylprednisolone 4 mg tablets in See Rx Instructions .Route 09/08/22 a dose pack (Medrol (Nathen)) .COMPLEX 6 days #21 tabs Allergies Allergy/AdvReac Type Severity Reaction Status Date / Time No Known Allergies Allergy Verified 10/16/20 09:42 Worker's Comp Is this a Worker's Comp case?: No [facility] Disclaimer: The information contained in this section may have been updated after the patient was seen, as this information can be updated by other users. Medical La
[2022-09-08 19:45] LABS: UTC Strep Screen (Rapid) Positive (Negative)
== END 2022-09-08 19:55 | disposition home or self-care (01) ==
PROVIDERS: Emergency Provider Nurse Practitioner; PCP Family Medicine
DX: J02.0 Streptococcal pharyngitis (principal)
CPT/HCPCS: 87880; 99212; 99213; G0463

== ENCOUNTER 2023-08-14 10:26 | Outpatient (CLI) | payer BC, OTHER, SELFPAY ==
[2023-08-14 11:12] LABS: Basophils % 0.4 % (0.1-2.0); Hemoglobin 14.3 g/dL (12.2-16.2); Lymphocytes # 2.7 K/mm3 (0.7-4.5); Lymphocytes % 39.8 % (10-50); Mean Corpuscular HGB Conc 33.3 g/dL (31.8-35.4); Mean Corpuscular Hemoglobin 29.4 pg (27.0-31.2); Mean Corpuscular Volume 88.4 fl (81-99); Mean Platelet Volume 7.9 fl (7.4-10.4); Monocytes # 0.3 K/mm3 (0.1-1.0); Monocytes % 4.4 % (1.7-9.3); Neutrophils # 3.7 K/mm3 (1.8-7.8); Neutrophils % 55.4 % (37.0-80.0); Platelet Count 273 K/mm3 (142-424); Red Blood Count 4.87 M/mm3 (4.20-5.40); Red Cell Distribution Width 14.2 % (11.5-17.5); White Blood Count 6.7 K/mm3 (4.8-10.8)
[2023-08-14 12:09] LABS: Alanine Aminotransferase 31 U/L (12-78); Albumin Level 4.6 g/dl (3.5-5.0); Albumin/Globulin Ratio 1.5 (1.1-1.8); Alkaline Phosphatase 61 U/L (38-126); Anion Gap 9.7 mEq/L (5-15); Aspartate Amino Transferase 31 U/L (14-36); Bilirubin,Total 0.3 mg/dl (0.2-1.3); Blood Urea Nitrogen 7 mg/dl (7-17); Calcium 8.7 mg/dl (8.4-10.2); Carbon Dioxide 28 mmol/L (22.0-30.0); Chloride 103 mmol/L (98-107); Estimated Glomerular Filt Rate 114 ml/min (>60); GFR (African American) 138 ML/MIN (>60); Globulin 3.1 g/dL (1.3-3.2); Glucose 86 mg/dl (74-100); Potassium 4.7 mmoL/L (3.5-5.1); Sodium 136 mmol/L (136-145); Total Protein,Serum 7.7 g/dl (6.3-8.2)
[2023-08-14 12:26] LABS: HCG,Quantitative < 2 mIU/ml (0-5.42)
== END 2023-08-14 23:59 ==
LOC: LAB 10:27
PROVIDERS: PCP Family Medicine; Visit Provider Obstetrics & Gynecology
DX: N39.3 Stress incontinence (female) (male) (principal)
CPT/HCPCS: 36415; 80053; 84702; 85025

== ENCOUNTER 2023-08-16 06:06 | Day surgery (SDC) | payer BC, OTHER, SELFPAY ==
[2023-08-15 10:31] VITALS: BMI 24.3
[2023-08-16] VITALS (10 sets, daily range): BP systolic 111–136; BP diastolic 68–87; PULSE 76–112; RESP 12–18; TEMP 36.1–36.6; O2SAT 96–100
[2023-08-16] MEDS: LACTATED RINGERS 1000ML 1,000 ML 25 ML IV (06:21)
[2023-08-16] MEDS: LIDOCAINE 1% W/EPI 1:100,000 20ML VIAL 20 ML (07:36)
[2023-08-16] MEDS: ROPIVACAINE 0.5% 30ML VIAL 150 MG ×2 (07:36→07:37)
[2023-08-16] MEDS: SODIUM CHLORIDE IRRIG SOLUTION 3,000 ML 100 ML IR (08:00)
--- NOTE | 2023-08-16 08:16 | EXP.ANES.CKL ---
[facility] Disclaimer: The information contained in this section may have been updated after the patient was seen, as this information can be updated by other users. Medical History Recurrent UTI Urinary tract infection Surgical History History of knee surgery Family History Other Family history non-contributory Social History Smoking Status: Current every day smoker tobacco type: cigarettes packs per day: 1 alcohol intake: never substance use type: denies use current occupational status: employed Travel in the last 8 weeks: None household members: family housing: house [facility] Anesthesia Checklist Patient Identification Patient Identification: Verbal (Name & ) Structural Data Admitted From: Home Planned Operative Procedure/s: pubo vag sling Consent for Planned Operative Procedure(s) Verified: Yes NPO Status Verified Time NPO: 00:00 Additional verifications Anesthesia Reactions: No Hx Blood Transfusions: No Blood Transfusion Reaction: No Airway Assessment Mallampati Score:: Class I C-Spine Mobility Assessed: Yes TMJ Mobility Assessed: Yes Dentition: Good Dentition Neurological Assessment Level of Consciousness: Awake, Alert and Appropriate Anesthesia Plan Anesthesia Risk discussed: Yes Anesthesia Plan: Verified ASA Class: II Anesthesia Type: General
--- NOTE | 2023-08-16 08:17 | P.PNANES_ITS ---
[facility] Anesthesia Record Part I Anesthesia Record I Intake, IV Amount: 1,200 Hydration: Adequate Estimated blood loss (mL): 50 Urine output (mL): 50 Blood Pressure: 126/68 SaO2: 96 Pulse Rate: 110 Airway Patency: Patent Respiratory Rate: 12 Temperature: 97.8 F Patient is:: Awake and Stable Stable to PACU at:: 08:16
--- NOTE | 2023-08-16 08:35 | EXP.OP.NOTE ---
Date of procedure: 08/16/23 Pre-op Diagnosis:: Stress urinary incontinence Post-op Diagnosis:: Stress urinary incontinence Procedure performed:: Tension-free retropubic mid urethral sling Surgeon:: Hortencia Levy DO Process Control Specialist(s):: Pito Bernstein MD SLOT FLOOR PERSON:: Darci Summers Anesthesia: GETA Estimated blood loss (mL): 50 Clinical Note:: Sofía Mcbride is a 33-year-old G2, P2 presenting today for surgical management of stress urinary incontinence. The patient was counseled on the risks, benefits, and alternatives to a mid-urethral sling, including but not limited to infection, mesh erosion, bleeding, injury to surrounding structures, voiding dysfunction, and unforeseen complications. Consent was preoperatively signed. Operative findings:: 1. Normal external genitalia. Normal appearing cervix. Mobile and mid-position urethra palpated. 2. On cystourethroscopy, a full survey of the bladder was performed after passage of the trocars, demonstrating no evidence of trocar perforation, other injury, trauma bleeding, or lesions. Brisk bilateral reflux of clear urine was visualized from the ureteral orifices. The urethra was intact without evidence of injury. Operative note:: The patient was taken to the operating room where anesthesia was induced. Preoperative antibiotics were give IV access was patent. The patient was positioned in standard dorsal lithotomy using stirrups, taking care to avoid hyperextension and flexion of the joints, as well as pad any pressure points. The patient was prepped and draped in the sterile fashion. A time-out was performed. A Latex-free Celaya was placed into the bladder. The suprapubic area was marked for the site of the future trocar passes, approximately 2 cm lateral to the midline. This area was hydrodistended with Neurontin 20 mL and each site. An Allis clamp was placed 1 cm proximal to the urethral meatus and another at the level of the urethrovesical junction along the midline. The mid-urethra was palpated. Local anesthetic with epinephrine was injected in the suburethral and bilaterally in the periurethral space. A vertical incision was then made in the vaginal epithelium at the level of the mid urethra. The vaginal epithelium was dissected off the underlying fascia with Metzenbaum scissors. Allis clamps were used for traction and Metzenbaum scissors were used to dissect the periurethral tunnel to the level of the inferior pubic ramus. This was repeated on the contralateral side. The bladder was confirmed to be empty. The rigid urethral catheter guide was placed in the bladder neck, deviating the bladder to the patient's left, with the trocar being passed on the patient's right. The [employer] advantage transvaginal tape trocar was placed in the previously dissected periurethral tunnel and passed retropubically, hugging the back of the pubic bone, and exiting through the suprapubic skin site. The vaginal epithelium was then inspected and no perforation was seen. Passage of the trocar was then repeated on the patient's left side, this time with the bladder deviated to the right with the rigid urethral catheter guide. The vaginal epithelium was inspected and no perforation was seen. The Celaya was removed and a cystoscopy performed. A full survey of the bladder was performed again, demonstrating no evidence of trocar perforation, other injury, bleeding, or lesions. Brisk bilateral efflux of clear urine was visualized from the ureteral orifices. The urethra was intact without evidence of injury. The cystoscope was removed, the Celaya replaced, and the bladder drained. The mesh was pulled to a tension free position in the mid urethra. An Allis was used to nicole 1 cm in the midline to ensure that the mesh was not too tight/restrictive. The plastic sheaths were removed. A repeat vaginal exam confirmed that there were no vaginal perforations with the mesh. Curved Sherman scissors were used to ensure tension-free mesh placement in the midline, setting the sling in place. Excess mesh was removed suprapubically and these sites are closed with Dermabond. The suburethral incision was closed with 2-0 Vicryl mattress sutures, taking care to not incorporate the mesh into the closure. Hemostasis was excellent. The counts were correct. The patient tolerated the procedure well. She was brought to the recovery room in stable condition. She will be discharged after meeting all discharge criteria to include voiding spontaneously and independently. Condition: stable Disposition: same day Specimens:: None Complications:: None
--- NOTE | 2023-08-18 11:55 | P.PNANES_ITS ---
[facility] Anesthesia Record Part II Anesthesia Record Part II Discharge Time: 08:46 Destination: Surgical Day Care (OP Surgery) PACU nurse assessment reviewed?: Yes Patient Condition:: Good Anesthesia Complications:: None Swallowing reflex intact?: Yes Airway Patency: Patent Cyanosis?: No Blood Pressure: 134/75 SaO2: 99 Respiratory Rate: 18 Pulse Rate: 92 Temperature: 97 F Mental Status: Alert & Oriented Pain level:: 0 Nausea and/or vomitting:: None Intake, IV Amount: 0 Hydration: Adequate
[2023-08-18 11:56] VITALS: BP 134/75; PULSE 92; RESP 18; TEMP 36.1; O2SAT 99
== END 2023-08-16 09:30 | disposition home or self-care (01) ==
PROVIDERS: PCP Family Medicine; Visit Provider Obstetrics & Gynecology
PROC: (CPT 51992; principal; 2023-08-16 07:30)
DX: N39.3 Stress incontinence (female) (male) (principal)
CPT/HCPCS: 51992; C1771; J2405

== ENCOUNTER 2023-09-04 16:03 | Outpatient (CLI) | payer BC, SELFPAY | END 2023-09-04 23:59 | LOC: LAB.DROPOF 16:03 | PROVIDERS: PCP Obstetrics & Gynecology; Visit Provider Obstetrics & Gynecology | DX: R39.89 Other symptoms and signs involving the genitourinary system (principal); B96.29 Other Escherichia coli [E. coli] as the cause of diseases classified elsewhere | CPT/HCPCS: 87086 ==

== ENCOUNTER 2024-03-19 08:00 | Outpatient (RCR) | payer BC, SELFPAY | END 2024-03-19 08:05 | disposition home or self-care (01) | LOC: PT 08:00 | PROVIDERS: Visit Provider Nurse Practitioner | DX: M79.671 Pain in right foot (principal); R60.9 Edema, unspecified | CPT/HCPCS: 97035; 97110; 97140; 97163 ==

== ENCOUNTER 2024-06-28 16:56 | Emergency (ER) | payer BC, SELFPAY ==
[2024-06-28 17:05] VITALS: BP 130/79; PULSE 73; RESP 20; TEMP 36.8; O2SAT 98; BMI 24.5
[2024-06-28 17:22] LABS: Apearance,Urine Clear (Clear); Bilirubin,Urine Negative (Negative); Blood, Urine 2+ (Negative); Color,Urine Yellow (Yellow); Glucose,Urine (UA) Negative (Negative); Ketones,Urine Negative (Negative); PH,Urine 6.5 (5.0-8.5); Protein,Urine Negative (Negative); UTC Leukocyte Esterase,Urine 3+ (Negative); UTC Nitrate,Urine Negative (Negative); Urobilinogen,Urine 0.2 EU/dl (0.2)
--- NOTE | 2024-06-28 17:39 | ED_ITS ---
Discharge Plan Disposition Patient Disposition: Home, Self-Care Condition: Good Prescriptions Prescriptions: New cephalexin 500 mg tablet 500 mg PO BID 7 Days Qty: 14 0RF Referrals Follow up/Referrals: Priscila Vásquez MD [Primary Care Provider] - See instructions Activity Restrictions/Add. Instructions Additional Instructions/Restrictions: Increase fluids, water and not soda or tea. Can drink cranberry juice or cranberry extract. Wipe front to back Wear cotton underwear Empty bladder after intercourse Start antibiotics immediately and make sure you take the full course although you may start to see improvement over the next 48 hours. You can eat yogurt or take probiotics to decrease diarrhea or yeast infection caused by the antibiotic Be sure to follow-up anytime for new or worsening symptoms in 48 hours for wound urine culture results be sure to let you PCP no recent urine for culture so they can request records and ensure that you have appropriate antibiotic if you are not getting better or getting worse. If symptoms worsen or do not improve return or be seen in the ER. Follow-up with primary care this week. Clinical Impressions Clinical Impression: UTI (urinary tract infection) Qualifiers: Urinary tract infection type: acute cystitis Hematuria presence: without hematuria Qualified Code(s): N30.00 - Acute cystitis without hematuria Instructions Patient Instructions: DI for Urinary Tract Infection (UTI) Print Language Print Language: Palauan Discharge [facility] HPI General Stated complaint: Burning,frequency with urination Mode of Arrival: Ambulatory Source of Information: Patient Limitations: No Limitations Time Seen by Provider: 06/28/24 17:39 Description of Symptoms (Recalled from Triage Doc. by RN): PATIENT C/O BURNING WITH URINATION THAT STARTED TODAY HEENT Symptoms (Recalled from RN notes): No Resp Symptoms (Recalled from RN notes): No Skin Symptoms (Recalled from RN notes): No MS Symptoms (Recalled from RN notes): No Functional Status (Recalled from RN notes): WNL History of Present Illness Provider Complaint: 33-year-old female presents for burning with urination and frequency since yesterday. Related Data Previous Rx's ?Medication ?Instructions ?Recorded cephalexin 500 mg tablet 500 mg PO BID 7 days #14 tabs 06/28/24 Allergies Allergy/AdvReac Type Severity Reaction Status Date / Time No Known Allergies Allergy Verified 10/01/23 14:06 Worker's Comp Is this a Worker's Comp case?: No [facility] Disclaimer: The information contained in this section may have been updated after the patient was seen, as this information can be updated by other users. Medical History , PATIENT SERVICE TECHNICIAN PST) Urinary tract infection Recurrent UTI Surgical History , PATIENT SERVICE TECHNICIAN PST) History of knee surgery Family History , PATIENT SERVICE TECHNICIAN PST) Family history non-contributory Social History , PATIENT SERVICE TECHNICIAN PST) Smoking Status: Current every day smoker tobacco type: cigarettes packs per day: 1 alcohol intake: never substance use type: denies use current occupational status: employed household members: family housing: house ROS Obtained: Yes Systems reviewed as appropriate & no additional complaints except as documented Physical Exam General General appearance: alert and in no apparent distress ENT ENT exam: Present normal exam Respiratory Respiratory exam: Present normal lung sounds bilaterally Cardiovascular Cardiovascular exam: Present regular rate and normal rhythm Abdominal Exam Abdominal exam: Present soft and normal bowel sounds Neurological Exam Neurological exam: Present alert and oriented X3 Medical Decision Making Medical Records Medical records reviewed: Yes I reviewed the patient's medical records. Screening: Per USPSTF and CDC recommendations, given the prevalence of disease in our region, it is our hospital?s policy to screen for HIV and viral Hepatitis for all patients aged 18 and over and those with ongoing risk factors. Ibrahima Inquiry Pt receiving controlled substance: No Ibrahima was queried for this patient: No Vital Signs: 06/28/24 17:05 Temperature 98.3 F Temperature Source Oral Pulse Rate [Left Brachial] 73 Respiratory Rate 20 Blood Pressure [Left Arm] 130/79 Blood Pressure Mean [Left Arm] 96 Blood Pressure Source [Left Arm] Automatic Cuff Blood Pressure Position [Left Arm] Sitting 02 Sat by Pulse Oximetry 98 Oxygen Delivery Method Room Air Lab Data Lab results reviewed: Yes I reviewed the patient's lab results. Lab Results 06/28/24 16:59: Urine Color Yellow, Urine Appearance Clear, Urine pH 6.5, Ur Sp ecific [place] 1.020, Urine Protein Negative, Urine Glucose (UA) Negative, Urine Ketones Negative, Urine Blood 2+, Urine Nitrate Negative, Urine Bilirubin Negative, Urine Urobilinogen 0.2, Ur Leukocyte Esterase 3+ A Orders (Tests/Meds): ORDERS Category Date Time Status Urine Culture Stat Micro 06/28/24 17:04 Received
[2024-06-28 17:54] VITALS: BP 130/79; PULSE 73; RESP 20; TEMP 36.8; O2SAT 98
--- NOTE | 2024-06-30 19:47 | PC.NURSE ---
REVIEWED PATIENT'S URINE CULTURE WITH Corinne ARIZA APRN. NO CHANGES NEEDED AT THIS TIME
== END 2024-06-28 17:55 | disposition home or self-care (01) ==
PROVIDERS: Emergency Provider Nurse Practitioner Family; PCP Family Medicine
DX: N30.00 Acute cystitis without hematuria (principal)
CPT/HCPCS: 81003; 87086; 87088; 87186; 99213; G0381

== ENCOUNTER 2025-07-19 09:45 | Outpatient (CLI) | payer BC, SELFPAY ==
--- OUTSIDE RECORDS SUMMARY | 2025-07-21 10:09 | XMS_ITS ---
Author Organization Unknown ENCOUNTERS Encounter Performer Location Date Diagnosis Diagnosis Status Pre Admit Alicia Mcclendon ([facility]) [address] [facility] [place] [id number] [id number] Emergency Alicia Mcclendon ([facility]) [address] [place] [address] [id number] [facility] Emergency Sofía Huddleston [address] [facility] [address] [phone] [facility] Emergency Carlos Henderson [address] [place] [address] [id number] [facility] Emergency [place] [address] [place] [address] [id number] MAMIE *Note: Encounters from your own facility or health system may be excluded. Allergies, Adverse Reactions, Alerts Allergen Type Severity Identification Date Medications Name Date Quantity Days Supplied GPI Number
== END 2025-07-19 23:59 | disposition home or self-care (01) ==
LOC: LAB.DROPOF 07-21 09:46
PROVIDERS: PCP Family Medicine; Visit Provider Student in an Organized Health Care Education/Training Program
DX: N39.0 Urinary tract infection, site not specified (principal)
CPT/HCPCS: 87086; 87088